=== PATIENT | female | born 1975 | race African-American/Black ===

== ENCOUNTER 2025-01-19 19:22 | Emergency (ER) | payer OTHER ==
[~2025-01-19] VITALS: Ht 170.2 cm; Wt 86.2 kg
[2025-01-19 20:32] VITALS: TEMP 98
[2025-01-19 20:35] VITALS: BP 160/87; O2SAT 100
[2025-01-19 21:46] LABS: ASPARTATE AMINOTRANSFERASE 14.0 U/L (15-37); CALCIUM, SERUM 9.1 mg/dL (8.5-10.1); CREATININE 0.8 mg/dL (0.6-1.3); SODIUM SERUM 139.0 mmol/L (136-145); TOTAL PROTEIN, SERUM 8.3 g/dL (6.4-8.2); UREA NITROGEN, BLOOD 9.0 mg/dL (7-18)
[2025-01-19 21:48] LABS: INR 1.04 (0.91-1.10)
[2025-01-19 22:20] LABS: PLATELET COUNT (AUTO) 63 K/uL (150-450); RED BLOOD CELL COUNT(AUTO) 2.25 MIL/uL (4.0-5.2); RED CELL DISTRIBUTION WIDTH 34.1 % (11.5-15.0); WHITE BLOOD COUNT (AUTO) 3.9 K/uL (4.3-11.0)
[2025-01-19 23:04] LABS: NEUTROPHILS % (MANUAL) 55 (42-76)
[2025-01-19 23:05] LABS: LYMPHOCYTES % (MANUAL) 41 % (16-48); MONOCYTES % (MANUAL) 4 % (0-11.0); PLATELET ESTIMATE DECREASED
== END 2025-01-19 23:18 | disposition left against medical advice (07) ==
LOC: ER 19:37
DX: N93.9 Abnormal uterine and vaginal bleeding, unspecified (principal); D25.9 Leiomyoma of uterus, unspecified; D64.9 Anemia, unspecified; Z86.018 Personal history of other benign neoplasm
CPT/HCPCS: 99284; 76856; 85027; 80048; 80076; 85007; 36415; 85730; J7030